=== PATIENT | male | born 1990 | race American Indian/Alaskan Native ===

== ENCOUNTER 2019-03-25 06:24 | Emergency (ER) | payer BC ==
[2019-03-25] MEDS ORDERED: TORADOL IM ONE (08:23)
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
[2019-03-25 10:09] VITALS: BP 131/71
== END 2019-03-25 09:28 | disposition home or self-care (01) ==
LOC: ED 06:24
DX: M62.830 Muscle spasm of back (principal); M62.838 Other muscle spasm; M54.2 Cervicalgia; M25.512 Pain in left shoulder; I10 Essential (primary) hypertension; G43.909 Migraine, unspecified, not intractable, without status migrainosus; F17.200 Nicotine dependence, unspecified, uncomplicated; Z79.899 Other long term (current) drug therapy; Z88.5 Allergy status to narcotic agent
CPT/HCPCS: 96372; 99282; J1885

== ENCOUNTER 2019-04-21 06:09 | Emergency (ER) | payer BC ==
[2019-04-21 06:21] VITALS: BP 156/101
[2019-04-21] MEDS ORDERED: predniSONE 20 MG TAB PO ONE (07:42)
[2019-04-21] MEDS ORDERED: guaiFENesin 100 MG/5 ML ORAL LIQD PO ONE (07:42)
--- NOTE | 2019-04-21 07:48 | Emergency Department Report ---
Minor Respiratory - HPI Chief Complaint: Upper Respiratory Infection Stated Complaint: COUGH, BODY ACHES, SORE THROAT Time Seen by Provider: 04/21/19 07:27 Duration: 2 Days Severity: mild Minor Respiratory: Yes Sore Throat, Yes Able to Tolerate Fluids, Yes Cough, No Rhinorrhea, No Ear Pain, No Sick Contacts, No Hemoptysis, No Chest Pain, No Shortness of Breath, No Fever Other History: This is a 28-year-old male with no prior medical history who presents to ED complaining of intermittent dry to productive coughing for the past 2 days. Patient states he also had a little bit loose sore throat this morning. Patient denies taking any medications. He denies any allergies to any medications. Denies any chest pain, shortness of breathing,fever ED Review of Systems ROS: Stated complaint: COUGH, BODY ACHES, SORE THROAT Other details as noted in HPI Comment: All other systems reviewed and negative ED Past Medical Hx - Past Medical History Previous Medical History?: Yes Hx Hypertension: Yes Hx Headaches / Migraines: Yes - Surgical History Past Surgical History?: No - Social History Smoking Status: Current Every Day Smoker Substance Use Type: None - Medications Home Medications: Home Medications Medication Instructions Recorded Confirmed Last Taken Type HYDROcodone/APAP 10-325 [[place] 1 each PO Q6HR PRN #10 tablet 09/24/14 Unknown Rx 10/325] Ondansetron [Zofran Odt] 4 mg SL Q6H PRN #8 tab.rapdis 09/24/14 Unknown Rx Rizatriptan Benzoate [Maxalt] 10 mg PO PRN #20 tab 09/24/14 Unknown Rx Gentamicin 0.3% Ophth Soln 2 drops OP Q4H #1 bottle 02/15/15 Unknown Rx Ibuprofen [Motrin 800 MG tab] 800 mg PO Q8HR PRN #30 tablet 02/15/15 Unknown Rx ALBUTEROL Inhaler(NF) [VENTOLIN 1 puff IH Q4H PRN #1 inha 05/14/18 Unknown Rx Inhaler(NF)] Loratadine [Claritin] 10 mg PO DAILY #20 tablet 05/14/18 Unknown Rx Cyclobenzaprine [Flexeril] 10 mg PO TID PRN #10 tablet 03/25/19 Unknown Rx Azithromycin [Zithromax] 250 mg PO DAILY #1 pack 04/21/19 Unknown Rx guaiFENesin/CODEINE [Robitussin AC] 5 ml PO Q6H PRN #60 ml 04/21/19 Unknown Rx Minor Respiratory Exam - Exam General: Vital signs noted. No distress. Alert and acting appropriately. HEENT: Yes Moist Mucous Membranes, No Pharyngeal Erythema, No Pharyngeal Exudates, No Rhinorrhea, No Conjuctival Injection, No Frontal Tenderness, No Maxillary Tenderness Ear: Neither TM Bulge, Neither TM Erythema, Neither EAC Pain, Neither EAC Discharge Neck: Yes Supple, No Adenopathy Lungs: Yes Good Air Exchange, No Wheezes, No Ronchi, No Stridor, No Cough, No Labored Respirations, No Retractions, No Use of Accessory Muscles, No Other Abnormal Lung Sounds Heart: Yes Regular, No Murmur Abdomen: Yes Normal Bowel Sounds, No Tenderness, No Peritoneal Signs Skin: No Rash, No Edema Neurologic: Alert and oriented, no deficits. Musculoskeletal: Unremarkable. ED Course Vital Signs 04/21/19 06:13 Temperature 98.4 F Pulse Rate 90 Respiratory 18 Rate Blood Pressure 156/101 O2 Sat by Pulse 96 Oximetry ED Medical Decision Making - Medical Decision Making 28-year-old male presents with upper respiratory infection with bronchitis. Patient was not exhibiting any signs of respiratory or acute distress. No airway compromise. Patient was sent for proximal Lasix treatment with a Z-Napoleon and cough suppressant. Discussed the patient to follow up with primary care physician. Referrals given. I did note that blood pressure was elevated patient denies any history of hypertension. I discussed the patient to follow up with the primary care for assessment and management of hypertension. Otherwise vital signs are normal Signed instructions and will follow-up. I discussed with him if he has any new symptoms or worsening symptoms to return to ED immediately - Differential Diagnosis bronchitis, upper respiratory infection Critical care attestation.: If time is entered above; I have spent that time in minutes in the direct care of this critically ill patient, excluding procedure time. ED Disposition Clinical Impression: Upper respiratory infection Disposition: DC-01 TO HOME OR SELFCARE Is pt being admited?: No Does the pt Need Aspirin: No Condition: Stable Instructions: Cold Symptoms (ED), Upper Respiratory Infection (ED) Additional Instructions: Make sure to follow up with the primary care physician as discussed. Take all your medications as you've been prescribed. If you have any worsening symptoms or develop new symptoms please return to ED immediately. Prescriptions: guaiFENesin/CODEINE [Robitussin AC] 5 ml PO Q6H PRN #60 ml PRN Reason: Cough Azithromycin [Zithromax] 250 mg PO DAILY #1 pack Referrals: PRIMARY CARE, [Primary Care Provider] - 3-5 Days [facility] [Outside] - 3-5 Days [facility] [Outside] - 3-5 Days Forms: Work/School Release Form(ED) Time of Disposition: 07:51
== END 2019-04-21 08:12 | disposition home or self-care (01) ==
LOC: ED 06:09
DX: J06.9 Acute upper respiratory infection, unspecified (principal); I10 Essential (primary) hypertension; G43.909 Migraine, unspecified, not intractable, without status migrainosus; F17.200 Nicotine dependence, unspecified, uncomplicated; Z79.899 Other long term (current) drug therapy; Z79.1 Long term (current) use of non-steroidal anti-inflammatories (NSAID); Z88.5 Allergy status to narcotic agent
CPT/HCPCS: 99282; J7512

== ENCOUNTER 2019-12-20 22:51 | Emergency (ER) | payer SELFPAY ==
--- NOTE | 2019-12-20 23:53 | XRay Report ---
CHEST 2 VIEWS INDICATION / CLINICAL INFORMATION: cough. COMPARISON: 05/14/2018 FINDINGS: SUPPORT DEVICES: None. HEART / MEDIASTINUM: No significant abnormality. LUNGS / PLEURA: No significant pulmonary or pleural abnormality. No pneumothorax. ADDITIONAL FINDINGS: No significant additional findings. IMPRESSION: 1. No acute findings. Signer Name: Darnell Dunn MD Signed: 12/20/2019 11:49 PM Workstation Name: [id number]
[2019-12-21] MEDS ORDERED: ACETAMINOPHEN 500 MG TAB PO ONE (03:07)
[2019-12-21] MEDS ORDERED: predniSONE 20 MG TAB PO ONE (03:07)
--- NOTE | 2019-12-21 03:38 | Emergency Department Report ---
- General Chief Complaint: Upper Respiratory Infection Stated Complaint: SORE THROAT COUGH HEADACHE BODY SORENESS Source: patient Mode of arrival: Ambulatory Limitations: No Limitations - History of Present Illness Initial Comments: Patient is a 29-year-old -Swiss male with a history of morbid obesity, hypertension, asthma, and migraine headaches who presents to the ED with complaint of acute onset persistent nasal and sinus congestion, frontal sinus pressure, headache, diffuse body aches and pains, persistent dry cough with generalized fatigue for the last 2 days. Patient states that he has been taking [id number] medication with no relief. Patient denies dizziness fever, nausea, vomiting, chest pain, shortness of breath, abdominal pain, back pain, change in vision or sore throat. MD Complaint: cough, rhinorrhea, nasal congestion, sinus pain, other (diffuse body aches) -: Sudden, days(s) (3) Severity: severe Severity scale (0 -10): 8 Quality: dull, aching Consistency: constant Improves With: nothing Worsens With: nothing Context: sick contacts Associated Symptoms: fever, chills, myalgias, headache, rhinorrhea, nasal conge stion, cough. denies: diaphoresis, shortness of breath, abdominal pain, nausea, vomiting, diarrhea, dysuria, rash, confusion, right sweats, weight loss, epistaxis Treatments Prior to Arrival: none - Related Data Previous Rx's Medication Instructions Recorded Last Taken Type HYDROcodone/APAP 10-325 [[place] 1 each PO Q6HR PRN #10 tablet 09/24/14 Unknown Rx 10/325] Ondansetron [Zofran Odt] 4 mg SL Q6H PRN #8 tab.rapdis 09/24/14 Unknown Rx Rizatriptan Benzoate [Maxalt] 10 mg PO PRN #20 tab 09/24/14 Unknown Rx Gentamicin 0.3% Ophth Soln 2 drops OP Q4H #1 bottle 02/15/15 Unknown Rx Ibuprofen [Motrin 800 MG tab] 800 mg PO Q8HR PRN #30 tablet 02/15/15 Unknown Rx ALBUTEROL Inhaler(NF) [VENTOLIN 1 puff IH Q4H PRN #1 inha 05/14/18 Unknown Rx Inhaler(NF)] Loratadine (Nf) [Claritin] 10 mg PO DAILY #20 tablet 05/14/18 Unknown Rx Cyclobenzaprine [Flexeril] 10 mg PO TID PRN #10 tablet 03/25/19 Unknown Rx guaiFENesin/CODEINE [Robitussin AC] 5 ml PO Q6H PRN #60 ml 04/21/19 Unknown Rx Azithromycin [Zithromax Z-SELWYN] 250 mg PO DAILY #6 tab 12/21/19 Unknown Rx Benzonatate [Tessalon Perles] 100 mg PO Q8HR #30 capsule 12/21/19 Unknown Rx Cetirizine HCl [Zyrtec 10mg tab] 10 mg PO DAILY #30 tablet 12/21/19 Unknown Rx Ibuprofen [Motrin] 800 mg PO Q8HR PRN #30 tablet 12/21/19 Unknown Rx methylPREDNISolone [Medrol 4MG 4 mg PO DAILY #21 tab.ds.pk 12/21/19 Unknown Rx DOSEPAK (21 tabs)] Allergies Allergy/AdvReac Type Severity Reaction Status Date / Time hydrocodone Allergy Vomiting Verified 03/25/19 06:29 ED Review of Systems ROS: Stated complaint: SORE THROAT COUGH HEADACHE BODY SORENESS Other details as noted in HPI Constitutional: chills, fever, malaise Eyes: denies: eye pain, eye discharge, vision change ENT: congestion, other (Grossly congested nasal passages; palpable frontal sinus pressure and headache). denies: ear pain, throat pain Respiratory: cough. denies: shortness of breath, wheezing Cardiovascular: denies: chest pain, palpitations Endocrine: no symptoms reported Gastrointestinal: denies: abdominal pain, nausea, vomiting, diarrhea Genitourinary: denies: urgency, dysuria Musculoskeletal: arthralgia, myalgia. denies: back pain, joint swelling Skin: denies: rash, lesions Neurological: headache. denies: weakness, paresthesias Psychiatric: denies: anxiety, depression Hematological/Lymphatic: denies: easy bleeding, easy bruising ED Past Medical Hx - Past Medical History Previous Medical History?: Yes Hx Hypertension: Yes Hx Headaches / Migraines: Yes - Surgical History Past Surgical History?: No - Social History Smoking Status: Current Some Day Smoker Substance Use Type: None - Medications Home Medications: Home Medications Medication Instructions Recorded Confirmed Last Taken Type HYDROcodone/APAP 10-325 [[place] 1 each PO Q6HR PRN #10 tablet 09/24/14 Unknown Rx 10/325] Ondansetron [Zofran Odt] 4 mg SL Q6H PRN #8 tab.rapdis 09/24/14 Unknown Rx Rizatriptan Benzoate [Maxalt] 10 mg PO PRN #20 tab 09/24/14 Unknown Rx Gentamicin 0.3% Ophth Soln 2 drops OP Q4H #1 bottle 02/15/15 Unknown Rx Ibuprofen [Motrin 800 MG tab] 800 mg PO Q8HR PRN #30 tablet 02/15/15 Unknown Rx ALBUTEROL Inhaler(NF) [VENTOLIN 1 puff IH Q4H PRN #1 inha 05/14/18 Unknown Rx Inhaler(NF)] Loratadine (Nf) [Claritin] 10 mg PO DAILY #20 tablet 05/14/18 Unknown Rx Cyclobenzaprine [Flexeril] 10 mg PO TID PRN #10 tablet 03/25/19 Unknown Rx guaiFENesin/CODEINE [Robitussin AC] 5 ml PO Q6H PRN #60 ml 04/21/19 Unknown Rx Azithromycin [Zithromax Z-SELWYN] 250 mg PO DAILY #6 tab 12/21/19 Unknown Rx Benzonatate [Tessalon Perles] 100 mg PO Q8HR #30 capsule 12/21/19 Unknown Rx Cetirizine HCl [Zyrtec 10mg tab] 10 mg PO DAILY #30 tablet 12/21/19 Unknown Rx Ibuprofen [Motrin] 800 mg PO Q8HR PRN #30 tablet 12/21/19 Unknown Rx methylPREDNISolone [Medrol 4MG 4 mg PO DAILY #21 tab.ds.pk 12/21/19 Unknown Rx DOSEPAK (21 tabs)] ED Physical Exam - General Limitations: No Limitations General appearance: alert, in no apparent distress - Head Head exam: Present: atraumatic, normocephalic, normal inspection - Eye Eye exam: Present: normal appearance, PERRL, EOMI Pupils: Present: normal accommodation - ENT ENT exam: Present: normal orophraynx, mucous membranes moist, TM's normal bilaterally, normal external ear exam, other (Palpable frontal sinus tenderness; grossly congested nasal passages) - Neck Neck exam: Present: normal inspection, full ROM. Absent: tenderness - Respiratory Respiratory exam: Present: normal lung sounds bilaterally. Absent: respiratory distress, wheezes, rales, rhonchi, chest wall tenderness, accessory muscle use, decreased breath sounds - Cardiovascular Cardiovascular Exam: Present: regular rate, normal rhythm, normal heart sounds. Absent: systolic murmur, diastolic murmur, rubs, gallop - GI/Abdominal GI/Abdominal exam: Present: soft, normal bowel sounds. Absent: tenderness, guarding, rebound, hyperactive bowel sounds, hypoactive bowel sounds, organomegaly - Extremities Exam Extremities exam: Present: normal inspection, full ROM, normal capillary refill - Back Exam Back exam: Present: normal inspection, full ROM. Absent: CVA tenderness (L), muscle spasm, paraspinal tenderness, vertebral tenderness - Neurological Exam Neurological exam: Present: alert, oriented X3, CN II-XII intact, normal gait, reflexes normal - Psychiatric Psychiatric exam: Present: normal affect, normal mood - Skin Skin exam: Present: warm, dry, intact, normal color. Absent: rash ED Course Vital Signs 12/20/19 23:05 Temperature 99.8 F H Pulse Rate 102 H Respiratory 20 Rate Blood Pressure 150/90 O2 Sat by Pulse 95 Oximetry ED Medical Decision Making - Radiology Data Radiology results: report reviewed, image reviewed Findings [facility] [address] [place] [address] XRay Report Signed Patient: PRISCILA GARAY MR#: [id number] : 1990 Acct:[id number] Age/Sex: 29 / M ADM Date: 12/20/19 Loc: ED Attending Dr: Ordering Physician: ED MD SCOTT Date of Service: 12/20/19 Procedure(s): XR chest routine 2V Accession Number(s): [id number] cc: ED MD SCOTT Fluoro Time In Minutes: CHEST 2 VIEWS INDICATION / CLINICAL INFORMATION: cough. COMPARISON: 05/14/2018 FINDINGS: SUPPORT DEVICES: None. HEART / MEDIASTINUM: No significant abnormality. LUNGS / PLEURA: No significant pulmonary or pleural abnormality. No pneumothorax. ADDITIONAL FINDINGS: No significant additional findings. IMPRESSION: 1. No acute findings. Signer Name: Darnell Dunn MD Signed: 12/20/2019 11:49 PM Workstation Name: [id number] Transcribed By: TL Dictated By: Darnell Dunn MD Electronically Authenticated By: Darnell Dunn MD Signed Date/Time: 12/20/192348 DD/ 47 TD/TT: - Medical Decision Making This is a 29-year-old -Swiss male with a history of morbid obesity, hypertension, asthma, and migraine headaches who presents to the ED with complaint of acute onset persistent nasal and sinus congestion, frontal sinus pressure, headache, diffuse body aches and pains, persistent dry cough with generalized fatigue for the last 2 days. In the ED, patient is alert and oriented x3 and is not in distress. Patient was treated in the ED for pain and chest x-ray shows no acute cardiopulmonary abnormalities or pneumonitis. Patient will discharge home on medications and advised to follow-up with his primary care physician in 5 to 7 days for reevaluation or return to the ED immediately if symptoms get worse. - Differential Diagnosis Sinusitis; Sinus headache; bronchitis; pneumonia Critical care attestation.: If time is entered above; I have spent that time in minutes in the direct care of this critically ill patient, excluding procedure time. ED Disposition Clinical Impression: Acute non-recurrent frontal sinusitis, Acute upper respiratory infection Acute bronchitis Qualifiers: Bronchitis organism: unspecified organism Qualified Code(s): J20.9 - Acute bronchitis, unspecified Disposition: DC-01 TO HOME OR SELFCARE Is pt being admited?: No Does the pt Need Aspirin: No Condition: Stable Instructions: Acute Bronchitis (ED), Upper Respiratory Infection (ED), Acute Bacterial Rhinosinusitis (ED) Additional Instructions: Take medication with food, drink lots of fluids and follow-up with your primary care physician in 7 to 10 days for reevaluation. Return to the ED immediately if symptoms get worse. Prescriptions: methylPREDNISolone [Medrol 4MG DOSEPAK (21 tabs)] 4 mg PO DAILY #21 tab.ds.pk Ibuprofen [Motrin] 800 mg PO Q8HR PRN #30 tablet PRN Reason: Pain , Severe (7-10) Benzonatate [Tessalon Perles] 100 mg PO Q8HR #30 capsule Azithromycin [Zithromax Z-SELWYN] 250 mg PO DAILY #6 tab Cetirizine HCl [Zyrtec 10mg tab] 10 mg PO DAILY #30 tablet Referrals: [facility] [Provider Group] - 7-10 days Time of Disposition: 03:40 Print Language: DANISH
[2019-12-21 04:21] VITALS: BP 142/86
== END 2019-12-21 04:10 | disposition home or self-care (01) ==
LOC: ED 22:51
DX: J20.9 Acute bronchitis, unspecified (principal); J01.10 Acute frontal sinusitis, unspecified; I10 Essential (primary) hypertension; G43.909 Migraine, unspecified, not intractable, without status migrainosus; F17.200 Nicotine dependence, unspecified, uncomplicated
CPT/HCPCS: 71046; 99283; J7512